=== PATIENT | male | born 1990 | race African-American/Black ===

== ENCOUNTER 2017-11-16 01:00 | Emergency (ER) | payer OTHER ==
[~2017-11-16] VITALS: Ht 177.8 cm; Wt 77.1 kg
[2017-11-16 01:15] LABS: ABSOLUTE NEUTROPHILS 4.7 thou/uL (1.4-8.2); BASOPHILS 0.7 % (0.0-2.0); EOSINOPHILS 1.8 % (0.0-3.0); HEMATOCRIT 41.4 % (42.0-52.0); HEMOGLOBIN 13.9 gm/dL (14.0-18.0); LYMPHOCYTES 35.2 % (24.0-44.0); MCH 29.1 pg (26.0-34.0); MCHC 33.6 g/dL (28.0-37.0); MCV 86.6 fL (80.0-100.0); MONOCYTES 10.2 % (1.0-8.0); PLATELET COUNT 269 thou/uL (150-400); POLYS 52.1 % (36.0-66.0); RBC 4.78 mil/uL (4.50-6.00); RDW 13.6 % (10.5-14.5)
[2017-11-16 01:23] LABS: CALCIUM 8.9 mg/dL (8.5-10.1); CREATININE 1.9 mg/dL (0.7-1.3)
[2017-11-16 01:26] LABS: POTASSIUM 2.9 mmol/L (3.5-5.1)
[2017-11-16 01:33] VITALS: BP 130/34
== END 2017-11-16 01:33 | disposition short-term general hospital (02) ==
LOC: ER 01:00
PROVIDERS: Emergency Medicine
DX: T14.8XXA Other injury of unspecified body region, initial encounter (principal); W34.00XA Accidental discharge from unspecified firearms or gun, initial encounter; Y93.89 Activity, other specified; Y92.89 Other specified places as the place of occurrence of the external cause; Y99.8 Other external cause status